=== PATIENT | female | born 1940 | race Caucasian/White ===

== ENCOUNTER 2019-11-30 12:58 | Emergency (ER) | payer MEDICARE ==
[~2019-11-30] VITALS: Ht 170.2 cm; Wt 59.3 kg
[2019-11-30] MEDS ORDERED: ISOVUE-370 76% 100ML VIAL As Ordered ONE (13:43)
[2019-11-30] MEDS ORDERED: ASPI81CH10 (13:46)
--- NOTE | 2019-11-30 14:23 | REP ---
Clinical: Acute chest pain with elevated D-dimer levels. Technique: Axial contrast enhanced images from the thoracic inlet to the upper abdomen using 75 ml Isovue 370 intravenous contrast material with coronal and sagittal re-formations. Findings: Satisfactory enhancement of the pulmonary vasculature is achieved and no filling defects are identified to suggest pulmonary embolus. Atherosclerotic changes to the thoracic aorta and coronary arteries noted without aortic aneurysm or dissection and no evidence for cardiomegaly. No pericardial effusion. The lung [place] demonstrate biapical and scattered scarring without focal consolidation, significant nodule or mass lesion. No pleural effusion. No pneumothorax. Tracheobronchial tree is patent. No obvious adenopathy. Impression: No evidence for pulmonary embolus. No acute pleuroparenchymal or mediastinal process. Electronically Signed by Maxwell Andre MD 11/30/2019 02:14 P
[2019-11-30 14:39] VITALS: BP 135/62
== END 2019-11-30 14:51 | disposition home or self-care (01) ==
LOC: M ED 12:58
DX: R79.9 Abnormal finding of blood chemistry, unspecified (principal); I10 Essential (primary) hypertension; Z85.3 Personal history of malignant neoplasm of breast; Z87.19 Personal history of other diseases of the digestive system
CPT/HCPCS: 71275; 80047; 99284; Q9967